=== PATIENT | male | born 1935 | race Caucasian/White ===

== ENCOUNTER 2018-08-09 10:55 | Day surgery (SDC) | payer MEDICARE, OTHER ==
[2018-08-09 11:40] VITALS: BMI 23.5
[2018-08-09 11:46] VITALS: TEMP 97.9
[2018-08-09] MEDS ORDERED: LACTATED RINGERS 1,000 ML IV ONE (11:46)
[2018-08-09] MEDS ORDERED: LIDOCAINE 1% 20 ML VIAL (10MG/ML) FOR IV START INTRADERMA ONE (11:46)
[2018-08-09] MEDS ORDERED: LIDOCAINE VISCOUS 2% 15 ML CUP MUCOUS MEM ONE (11:50)
[2018-08-09] MEDS ORDERED: LIDOCAINE 2% (PF) 20 MG/ML 10 ML AMP INHALATION STA (11:53)
[2018-08-09] MEDS ORDERED: PROPOFOL 10 MG/ML 20 ML VIAL IV ONE (12:46)
[2018-08-09] MEDS ORDERED: LIDOCAINE 1% INJ 10MG/ML (20 ML MDV) ONE (12:46)
[2018-08-09] MEDS ORDERED: KETAMINE 10 MG/ML 20 ML VIAL ONE (12:46)
[2018-08-09] MEDS ORDERED: LIDOCAINE 2% INJ 20 MG/ML INTRATRACH ONE (12:54)
--- NOTE | 2018-08-09 13:23 | P.PCN ---
Date of Procedure: 08/09/18 Preoperative Diagnosis: right paratracheal mass/ LN Postoperative Diagnosis: Right paratracheal mass/LN Implants: Axilla bronchoscopy, transbronchial needle aspirate of right paratracheal mass Anesthesia: MAC Surgeon: Sam Baker Estimated Blood Loss (ml): 10 Pathology: other Condition: stable Disposition: same day Operative Findings: This procedure was done under sedation and anesthetic agents was administered by anesthesia the bedside. After achieving adequate sedation, the flexible bronchoscope was inserted through the left nostril to the left upper airway. Examination of the posterior oropharynx, larynx, epiglottis and vocal Cords was done and the upper airway structures were all within normal limits. A total of 2 mL of 1% lidocaine was applied to the vocal cords and following that the bronchoscope was advanced upper trachea, and examination of the tracheobronchial tree was done. Trachea, bilateral mainstem bronchi, right upper , right ,middle and right lower lobe left upper and left lower lobe bronchi were all seen and visualized and there were all within normal limits. The bronchoscope was then moved to the distal trachea and using a 19-gauge cytology and 21-gauge histology needle was used and TBNA of the right paratracheal mass was done. A total of 4 passes was taken. Adequacy of the samples was confirmed by pathology at the bedside. There was some bleeding encountered at the puncture site at spontaneously recovered and the residual blood was suctioned out of the airway. At the end of the procedure, therapeutic it was suctioning was done. The bronchoscope was removed and the patient was transferred recovery in stable condition. No oxygen desaturations encountered during the procedure. The patient was discharged home to be followed up to discuss the results of the biopsy.
[2018-08-09 13:27] VITALS: RESP 16
[2018-08-09 13:41] VITALS: BP 120/77; PULSE 64
== END 2018-08-09 14:09 | disposition home or self-care (01) ==
LOC: ORWHC2ENDO 10:55
PROVIDERS: ATTEND Internal Medicine Critical Care Medicine
DX: C33 Malignant neoplasm of trachea (principal); R59.0 Localized enlarged lymph nodes; N40.1 Benign prostatic hyperplasia with lower urinary tract symptoms; R35.0 Frequency of micturition; R39.14 Feeling of incomplete bladder emptying; R97.20 Elevated prostate specific antigen [PSA]; I10 Essential (primary) hypertension; K57.90 Diverticulosis of intestine, part unspecified, without perforation or abscess without bleeding; J44.9 Chronic obstructive pulmonary disease, unspecified; R63.4 Abnormal weight loss; Z68.23 Body mass index [BMI] 23.0-23.9, adult; Z79.899 Other long term (current) drug therapy; Z87.891 Personal history of nicotine dependence; Z91.030 Bee allergy status
CPT/HCPCS: 94640; 88305; 88173; 88342; 88341; 31629; J2001 ×3; J2704

== ENCOUNTER → 2018-08-11 | Outpatient (CLI) | payer MEDICARE ==
--- NOTE | 2018-08-13 12:09 | PE ---
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 Localization and attenuation correction CT scan was performed. No comparisons Neck and CHEST: Bilateral cervical adenopathy is present. SUV along the anterior right cervical chain measures 1.6. On the left SUV 2.8. Supraclavicular nodes are present bilaterally. There is extension adenopathy along the superior mediastinum, SUV 3.9. Large retrocaval pretracheal mass measuring appr oximately 3.7 cm in short axis, SUV 4.1. Subcarinal adenopathy shows SUV 2.5. There is a right middle lobe lung nodule, SUV 2.1. Nodule measures approximately 11 mm in greatest dimension. Aorticopulmona ry window suggestion of hypermetabolic uptake, SUV 3 Abdomen pelvis: Retrocrural node is present, SUV value 2.1. Retroperitoneal adenopathy present bilate rally posterior to the inferior cava and about the aorta, SUV approximately 3.1. There is extension a long the common iliac vasculature proximally, SUV 3.8 on the right, 5.8 on the left. Along the business administration professor al iliac vasculature on the right adenopathy shows SUV 3.8. No definite inguinal nodes. Questionable increased uptake seen within the prostate, SUV 6. Osseous structures: There are focal areas of uptake involving the sternum, SUV 2.8, within the manubr ium is a focus of uptake, SUV 4.1. Left aspect at L1 shows a focal area of uptake with SUV 3.3 IMPRESSION: Extensive adenopathy as described compatible with patient's history of lymphoma. Bone les ions as described.
== END | disposition home or self-care (01) ==
LOC: RADPETMAIN 14:51
PROVIDERS: ATTEND Internal Medicine Hematology & Oncology
DX: C96.Z Other specified malignant neoplasms of lymphoid, hematopoietic and related tissue (principal); M89.9 Disorder of bone, unspecified
CPT/HCPCS: 78815; A9552